=== PATIENT | male | born 1955 | race Caucasian/White ===

== ENCOUNTER → 2024-05-03 14:59 | Outpatient (BNVA) | payer MEDICARE, SELFPAY | PROVIDERS: PCP Nurse Practitioner Family; Referring Provider Nurse Practitioner Family; Visit Provider Physical Therapy Assistant | DX: Z12.11 Encounter for screening for malignant neoplasm of colon (principal); Z86.010 Personal history of colon polyps ==

== ENCOUNTER 2024-05-07 13:20 | Day surgery (SDC) | payer MEDICARE, SELFPAY ==
[2024-05-07 14:12] VITALS: BP 121/77; PULSE 58; RESP 16; TEMP 36.2; O2SAT 99
[2024-05-07] MEDS: Lactated Ringers 1,000 ML 80 ML IV (14:15)
--- NOTE | 2024-05-07 14:55 | W.ANESPRE ---
General Info Date of Service Date Performed: 05/07/24 Height: 6 ft 2 in Weight: 90.2 kg Body Mass Index (BMI): 25.5 Surgical Procedure: Operation Date: 05/07/24 14:20 Proposed Procedure Side Surgeon barbara Orellana MD Meds Allergies and Home Medications Allergies Allergy/AdvReac Type Severity Reaction Status Date / Time Sulfa (Sulfonamide Allergy Unknown Unknown Verified 05/04/24 11:41 Antibiotics) bees Allergy Unknown swelling Uncoded 05/04/24 11:41 of arm Home Medication Medication Instructions Recorded acyclovir 400 mg tablet 400 mg PO TID 04/27/24 albuterol sulfate 90 mcg/actuation 2 puff inhalation QID PRN 04/27/24 aerosol inhaler cholecalciferol (vitamin D3) 125 125 mcg PO DAILY 04/27/24 mcg (5,000 unit) capsule epinephrine 0.3 mg/0.3 mL 0.3 mg IM Q5-15M PRN 04/27/24 injection, auto-injector (EpiPen 2-Aman) fluticasone 100 mcg-salmeterol 50 1 inh inhalation BID 04/27/24 mcg/dose blistr powdr for inhalation (Advair Diskus) loratadine 10 mg capsule (Claritin 10 mg PO DAILY 04/27/24 Liqui-Gel) bisacodyl 5 mg tablet,delayed 5 mg PO ONCE #4 tabs 05/03/24 release (Dulcolax (bisacodyl)) polyethylene glycol 3350 17 17 g PO ONCE #238 grams 05/03/24 gram/dose oral powder Current Visit Medications: Current Medications Generic Name Dose Route Start Last Admin Trade Name Andreaq PRN Reason Stop Dose Admin Ringer's Solution 1,000 mls @ 80 mls/hr 05/07/24 06:00 05/07/24 14:15 IV 05/07/24 23:59 80 mls/hr INFUSION ADALBERTO Administration IV Miscellaneous Supplies 1 each 05/07/24 06:00 Iv Access IV 05/07/24 23:59 DIRECTED ADALBERTO Sodium Chloride 0 ml 05/07/24 06:00 Normal Saline Flush 10 Ml Syr IV 05/07/24 23:59 PRN PRN Sodium Chloride 0 ml 05/07/24 06:00 Normal Saline 10 Ml Vial IJ 05/07/24 23:59 DIRECTED PRN Sterile Water 0 ml 07/01/24 06:00 Water,Injection,Sterile 10 Ml Vial IJ 05/07/24 23:59 DIRECTED PRN [facility] Medical History Medical History Degenerative spondylolisthesis Hyperlipidemia Leukopenia Former smoker Vitamin deficiency Unspecified asthma Iron deficiency anemia Tubular adenoma (~06/2018) Surgical History Surgical History H/O colonoscopy with polypectomy (~06/2018) 06/27/18 - [facility]. Tubular adenoma Tobacco Smoking/Tobacco Use Status: Former Tobacco Use Alcohol Alcohol Intake: current Alcohol intake frequency: 0-2 drinks per day Alcohol type: beer Substance Use Substance use: Never Substance use type: does not use Details: alcohol:t-1 2 beers Vital Signs and Lab Results Vital Signs Most Recent Vital Signs in EMR: Most Recent Vital Signs Temp Pulse Resp BP Pulse Ox 36.2 C L 58 L 16 121/77 99 05/07/24 14:12 05/07/24 14:12 05/07/24 14:12 05/07/24 14:12 05/07/24 14:12 Lab Results Blood Type / Crossmatch: No Data to Display Complete Blood Count: No Data to Display Complete Metabolic Panel: No Data to Display Liver Function Panel: No Data to Display Coagulation Panel: No Data to Display Cardiac Panel: No Data to Display Arterial Blood Gas: No Data to Display Venous Blood Gas: No Data to Display Pancreas Panel: No Data to Display Thyroid Panel: No Data to Display Infectious Disease: No Data to Display Blood Cultures: No Data to Display Toxicology Panel: No Data to Display Anesthesia Assessment and Plan Anesthesia History Personal History: No History of Anesthesia Complications Family History: No Family History of Anesthesia Complications Exercise Tolerance Exercise Tolerance: Metabolic Equivalents>4 Pertinent Negatives Pertinent Negatives: No Symptoms of GERD Cardiac & Pulmonary Exam Cardiac Exam: Normal S1/S2 Heart Sounds Pulmonary Exam: Clear Bilateral Breath Sounds Implantable Cardiac Device Does patient have a Pacemaker or an ICD?: No Airway Exam Known Difficult Airway: No Mallampati Class: 2 Mouth Opening: Normal (> 3cm) Thyromental Distance: Greater than 3 cm Neck Range of Motion: Full ROM Neck Circumference: Normal Teeth Condition: Generalized Poor Dentition ASA Classification ASA Score: ASA 2 Emergency Case?: No NPO Status NPO Status: NPO Clears >2 hours, Solids >8 hours Anesthesia Plan Resuscitation Status: Full Code Anesthesia Technique: General Anesthesia Airway Planned: Natural Airway Monitors Used: Standard Monitors
[2024-05-07 16:13] VITALS: BMI 25.5
--- NOTE | 2024-05-07 16:39 | W.COLOREPORT ---
Date of service: 05/07/24 Time of Service: 17:10 Colonoscopy Report Procedure Description: PROCEDURES PERFORMED: 1. Colonoscopy with hot snare polypectomy x2 2. Ablation/fulguration/destruction of colon polyp x 1 PREOPERATIVE DIAGNOSIS: Surveillance colonoscopy, colon polyps POSTOPERATIVE DIAGNOSIS: Colorectal polyps, grade 1 internal hemorrhoids SURGEON: Lucinda Orellana MD INDICATION for procedure: The patient is a 68-year-old man without any family history of colon cancer and without symptoms who has had a personal history of prior adenomatous polyps. His last colonoscopy was 6 years ago. FINDINGS: He has a long and redundant colon. At the splenic flexure, 3-5 mm sessile polyp was removed with hot snare technique. In the sigmoid colon a small 2-3 mm sessile polyp was ablated with the tip of the hot snare. In the rectum, another 3-5 mm flat/sessile polyp was removed with hot snare technique. No diverticular disease was appreciated. There is very mild grade 1 internal hemorrhoid disease present. SURVEILLANCE interval/FOLLOW-UP: 3 - 10 years. If sessile serrate or villous histology, then in 3 years. If simple adenomas then 5 years. If both polyps are hyperplastic by chance, then in 7 years should be adequate. SPECIMENS: yes EBL: Minimal COMPLICATIONS: None QUALITY of prep: Excellent Procedure in detail: The patient gave written consent and was in agreement with the indications, the potential risks as well as the benefits of the procedure. They were taken to the endoscopy suite and laid in the left lateral decubitus position. A timeout was performed and anesthesia was administered which was tolerated well. I started the procedure. Digital rectal and visual examination was performed and grossly within normal limits. A well-lubricated flexible colonoscope was then introduced and passed without any notable difficulty all the way to the cecum identified by the ileocecal valve and the appendiceal orifice. The scope was then slowly withdrawn with the above-noted findings. The patient tolerated the procedure well and was taken to the PACU in hemodynamically stable condition.
--- NOTE | 2024-05-07 16:58 | BOWEL_PTH ---
PATIENT: Hudson Carty LOC: [facility] U#:[id number] AGE/SX: 68/M ROOM: RE05/07/[address]: Kang Orellana : 1955 BED: DIS: 05/07/2024 SPEC #: [id number] RECD: 05/07/24 18:27 STATUS: [place] RETaqueria #: [id number] SPIKE: 05/07/24 16:[address]: Kang Orellana DEPT: Surgical Specimen RECD BY: Che Alonzo ENTERED: 05/07/24 18:27 SP TYPE: Bowel OTHR DR: Rosey Kamara Tissues: 1 - BIOPSY BOWEL 2 - BIOPSY BOWEL Procedures: GROSS AND MICRO LEVEL 4 Comments: [id number]
[2024-05-07 17:10] VITALS: BP 116/74; PULSE 63; RESP 16; TEMP 36.2; O2SAT 96
--- NOTE | 2024-05-07 17:12 | W.PM.DSUDISC ---
Date of service: 05/07/24 Time of Service: 17:12 Discharge Plan Disposition Patient Disposition: Home Condition: Good Discharge Details Attending Provider: Kang Orellana Primary Care Provider: Rosey Kamara Home Meds and New Rx's Prescriptions: No Action acyclovir 400 mg tablet 400 mg PO TID Rx Instructions: 1 tab tid at the first sign of a cold sore cholecalciferol (vitamin D3) 125 mcg (5,000 unit) capsule 125 mcg PO DAILY epinephrine [EpiPen 2-Aman] 0.3 mg/0.3 mL auto-injector 0.3 mg IM Q5-15M PRN Rx Instructions: do not exceed 3 doses per episode Claritin Liqui-Gel 10 mg capsule 10 mg PO DAILY fluticasone propion-salmeterol [Advair Diskus] 100-50 mcg/dose blister with device 1 inh inhalation BID albuterol sulfate 90 mcg/actuation HFA aerosol inhaler 2 puff inhalation QID PRN bisacodyl [Dulcolax (bisacodyl)] 5 mg tablet,delayed release (DR/EC) 5 mg PO ONCE Qty: 4 0RF Rx Instructions: Take per colonoscopy instructions provided by ordering providers office polyethylene glycol 3350 17 gram/dose powder 17 g PO ONCE Qty: 238 0RF Rx Instructions: Take per colonoscopy instructions provided by ordering providers office Discharge Instructions Additional Instructions: FINDINGS: Similar polyps were found and removed today. They are nothing to worry about. This is why we do the colonoscopies. Depending on the type of polyps, they may change WHEN you do your next colonoscopy. This could be anywhere from 3 to 7 years and we will call you once we have the results back. Stand Alone Forms: Anesthesia Discharge Inst., Colonoscopy Post Instructions, Miya Dougherty (QAMAR) Activity:: Activity as Tolerated Diet:: As Tolerated
--- NOTE | 2024-05-07 17:32 | W.ANESPOSTOP ---
Postoperative Evaluation Date, Time and Location Date Performed: 05/07/24 Time Performed: 17:12 Patient Location: Day Surgery Unit Vital Signs Most Recent Imported Vital Signs: Most Recent Vital Signs Temp Pulse Resp BP Pulse Ox 36.2 C L 63 16 116/74 96 05/07/24 17:10 05/07/24 17:10 05/07/24 17:10 05/07/24 17:10 05/07/24 17:10 Pain Score Most Recent Pain Score: Most Recent Pain Score Pain Level 0 05/07/24 17:10 Assessment Mental Status: Awake (Alert & Oriented to Patient Baseline) Airway and Respiratory Function: Patent airway with normal (patient baseline) respiratory exam Cardiovascular Function: Hemodynamically Stable Hydration Status: Adequately Hydrated Nausea & Vomiting: No Nausea or Vomiting Pain: Pt. Denies Any Pain Peripheral Nerve Block: Patient did not receive a nerve block
[2024-05-07 17:45] VITALS: BP 122/76; PULSE 51; RESP 16; TEMP 36.3; O2SAT 97
== END 2024-05-07 18:10 | disposition home or self-care (01) ==
LOC: SUR 13:21
PROVIDERS: PCP Nurse Practitioner Family; Visit Provider Student in an Organized Health Care Education/Training Program
PROC: 0DJD8ZZ Inspection of Lower Intestinal Tract, Via Natural or Artificial Opening Endoscopic (ICD-10-PCS; CPT 45378; principal; 2024-05-07 14:15)
DX: Z12.11 Encounter for screening for malignant neoplasm of colon (principal); D12.3 Benign neoplasm of transverse colon; K62.1 Rectal polyp; K64.0 First degree hemorrhoids
CPT/HCPCS: 45385; 45388; 00123; 88305; J2704